=== PATIENT | male | born 1995 | race African-American/Black ===

== ENCOUNTER → 2016-09-20 10:14 | Emergency (ER) | payer OTHER ==
--- NOTE | 2016-09-20 11:31 | ED ---
Upper Extremity Pain - HPI Summary HPI Summary: Pt here w/ Lt shoulder pain while doing push-ups today. [place] a pop and pain. H/ o shoulder dislocation (clavicle separation). Was told he needed surgery but did not have it. Has been fine since today. Denies numbness, tingling, weakness in extremity but is painful to move shoulder. Moving elbow, wrist and fingers well. Has not had anything for pain yet today. - History of Current Complaint Chief Complaint: EDShoulderClavicFarzana Stated Complaint: LT SHOULDER INJURY Time Seen by Provider: 09/20/16 11:08 Hx Obtained From: Patient - Allergies/Home Medications Allergies/Adverse Reactions: Allergies Allergy/AdvReac Type Severity Reaction Status Date / Time No Known Allergies Allergy Verified 09/20/16 10:24 PMH/Surg Hx/FS Hx/Imm Hx Previously Healthy: Yes Endocrine/Hematology History: Denies: Hx Anticoagulant Therapy, Hx Blood Disorders, Hx Unexplained Bleeding Musculoskeletal History: Reports: Other Musculoskeletal History - H/o Lt shoulder separation EENT History: Reports: Other - uveiitis - uses rx eye drops Infectious Disease History: No Infectious Disease History: Denies: Traveled Outside the [place] in Last 30 Days - Family History Known Family History: Positive: None - Social History Occupation: Unemployed Lives: [facility] Alcohol Use: None Hx Substance Use: No Substance Use Type: Reports: None Smoking Status (MU): Light Every Day Tobacco Smoker Review of Systems Constitutional: Negative Negative: Fever, Chills Negative: Chest Pain Negative: Shortness Of Breath Musculoskeletal: Other - see HPI Neurological: Negative Negative: Weakness, Paresthesia, Numbness Psychological: Normal All Other Systems Reviewed And Are Negative: Yes Physical Exam Triage Information Reviewed: Yes Vital Signs On Initial Exam: Initial Vitals Temp Pulse Resp BP Pulse Ox 97.4 F 47 16 142/66 100 09/20/16 10:24 09/20/16 10:24 09/20/16 10:24 09/20/16 10:24 09/20/16 10:24 Vital Signs Reviewed: Yes Appearance: Positive: Well-Appearing, No Pain Distress, Well-Nourished Skin: Positive: Warm, Dry Head/Face: Positive: Normal Head/Face Inspection Eyes: Positive: Normal, EOMI, Conjunctiva Clear ENT: Positive: Hearing grossly normal Respiratory/Lung Sounds: Positive: Breath Sounds Present Cardiovascular: Positive: Normal, Pulses are Symmetrical in both Upper and Lower Extremities Musculoskeletal: Positive: Limited @ - Lt shoulder w/ limited ROM d/t pain - AC joint is prominent compared to Rt side; FROM elbows, wrist and phalanges Neurological: Positive: Normal, Sensory/Motor Intact - motor limited in Lt shoulder, Alert, Oriented to Person Place, Time, CN Intact II-III Psychiatric: Positive: Normal Diagnostics - Vital Signs Vital Signs Temp Pulse Resp BP Pulse Ox 09/20/16 11:21 97.4 F 82 15 129/70 100 09/20/16 10:26 97.4 F 47 16 142/66 100 09/20/16 10:24 97.4 F 47 16 142/66 100 - Laboratory Lab Statement: Any lab studies that have been ordered have been reviewed, and results considered in the medical decision making process.
--- NOTE | 2016-09-20 12:53 | RAD ---
Indication: Left shoulder pain. 4 views of left shoulder demonstrates no fracture. Hypertrophy of the distal clavicle is noted with fragmentation of the distal clavicle likely due to AC joint arthritis. No fracture is noted. IMPRESSION: AC joint arthritis without fracture.
[2016-09-20 14:17] VITALS: BP 134/75
== END | disposition home or self-care (01) ==
LOC: ED 10:14
DX: M25.512 Pain in left shoulder (principal); F17.210 Nicotine dependence, cigarettes, uncomplicated
CPT/HCPCS: 99282